=== PATIENT | male | born 1935 | race Caucasian/White ===

== ENCOUNTER 2019-04-01 01:43 | Emergency (ER) | payer SELFPAY, OTHER | END 2019-04-01 08:40 | disposition home or self-care (01) | LOC: E/R 01:43 | DX: F10.920 Alcohol use, unspecified with intoxication, uncomplicated (principal); R40.2142 Coma scale, eyes open, spontaneous, at arrival to emergency department; R40.2342 Coma scale, best motor response, flexion withdrawal, at arrival to emergency department; R40.2212 Coma scale, best verbal response, none, at arrival to emergency department | CPT/HCPCS: 70450; 99284-25 ==